=== PATIENT | female | born 1985 | race Caucasian/White ===

== ENCOUNTER → 2024-05-20 07:13 | Outpatient (REF) | payer BC, SELFPAY ==
[2024-05-20 08:30] LABS: Urine Albumin Negative (Neg - Trace); Urine Bilirubin Negative (Negative); Urine Character Clear (Clear); Urine Color Yellow; Urine Glucose Negative (Negative); Urine Ketone Negative (Negative); Urine Leukocyte Negative (Negative); Urine Nitrite Negative (Negative); Urine Occult Blood Negative (Negative); Urine Specific Gravity 1.015 (<1.030); Urine Urobilinogen Negative (Neg - 1+)
[2024-05-20 08:53] LABS: ALT (SGPT) 19 U/L (0-35); AST (SGOT) 24 U/L (14-36); Albumin 4.6 g/dl (3.5-5.0); Alkaline Phosphatase 49 U/L (38-126); Blood Urea Nitrogen 11 mg/dl (7-17); Calcium 9.2 mg/dl (8.4-10.2); Carbon Dioxide 24 mmol/L (22-30); Chloride 104 mmol/L (98-107); Glucose 83 mg/dl (70-99); Potassium 4.3 mmol/L (3.5-5.1); Sodium 137 mmol/L (135-145); Total Bilirubin 0.5 mg/dl (0.2-1.3); Total Protein 7.2 g/dl (6.3-8.2); eGFR > 60.00
[2024-05-20 09:15] LABS: Urine Protein < 5.0 mg/dl
[2024-05-20 09:18] LABS: TSH Reflex To Free T4 3.38 uIU/ml (0.47-4.68)
[2024-05-20 09:59] LABS: Erythrocyte Sed Rate 9 mm/hour (0-20)
[2024-05-22 11:14] LABS: SSA 52 (Ro)(ENA) Ab, IgG 2 AU/mL (0-40); SSA 60 (Ro)(ENA) Ab, IgG 98 AU/mL (0-40); SSB (La)(ENA) Ab, IgG 11 AU/mL (0-40)
[2024-05-23 09:56] LABS: Albumin 4.58 g/dL (3.75-5.01); Alpha 1 Globulin 0.23 g/dL (0.19-0.46); Alpha 2 Globulin 0.55 g/dL (0.48-1.05); SPEP IFE Reflex Not Done; Total Protein-Electrophoresis 7.1 g/dL (6.3-8.2)
== END ==
LOC: REG 07:13
PROVIDERS: ATTENDING PHYSICIAN Internal Medicine Rheumatology; FAMILY PHYSICIAN Internal Medicine
DX: M35.1 Other overlap syndromes (principal)
CPT/HCPCS: 36415; 80053; 81003; 82565; 82570; 84155; 84156; 84165; 84443; 85652; 86160; 86235; 86430

== ENCOUNTER → 2024-09-12 13:42 | Outpatient (REF) | payer BC, SELFPAY ==
[2024-09-12 17:14] LABS: Beta HCG Quantitative 876.41 mIU/ml
== END ==
LOC: HWLAB 13:42
PROVIDERS: ATTENDING PHYSICIAN Specialist; FAMILY PHYSICIAN Internal Medicine
DX: O03.9 Complete or unspecified spontaneous abortion without complication (principal)
CPT/HCPCS: 36415; 84702

== ENCOUNTER → 2024-09-27 07:15 | Outpatient (REF) | payer BC, SELFPAY ==
[2024-09-27 10:34] LABS: Beta HCG Quantitative 41.99 mIU/ml
== END ==
LOC: HWLAB 07:15
PROVIDERS: ATTENDING PHYSICIAN Specialist; FAMILY PHYSICIAN Internal Medicine
DX: O03.9 Complete or unspecified spontaneous abortion without complication (principal)
CPT/HCPCS: 36415; 84702

== ENCOUNTER → 2024-10-14 08:00 | Outpatient (REF) | payer BC, SELFPAY ==
[2024-10-14 10:27] LABS: Beta HCG Quantitative 5.14 mIU/ml
== END ==
LOC: HWLAB 08:00
PROVIDERS: ATTENDING PHYSICIAN Specialist; FAMILY PHYSICIAN Internal Medicine
DX: O03.9 Complete or unspecified spontaneous abortion without complication (principal)
CPT/HCPCS: 36415; 84702

== ENCOUNTER → 2024-12-05 08:36 | Outpatient (REF) | payer BC, SELFPAY ==
[2024-12-05 09:42] LABS: Hematocrit 43.0 % (37.0-47.0); Hemoglobin 14.3 g/dL (12.0-16.0); Mean Corp Hgb Conc. 33.3 g/dL (33.0-37.0); Mean Corpuscular Volume 93.5 fL (81.0-99.0); Nucleated Red Blood Cells % 0 %; Platelet Count 248 10^3/uL (130-400); Red Cell Dist. Width 11.9 % (11.5-14.5)
[2024-12-05 09:42] LABS: Urine Character Clear (Clear)
[2024-12-05 10:09] LABS: Urine Squamous Cell >30 /LPF (Few)
[2024-12-05 10:34] LABS: ALT (SGPT) 17 U/L (0-35); AST (SGOT) 21 U/L (14-36); Albumin 4.9 g/dl (3.5-5.0); Alkaline Phosphatase 30 U/L (38-126); Blood Urea Nitrogen 9 mg/dl (7-17); Calcium 9.6 mg/dl (8.4-10.2); Carbon Dioxide 25 mmol/L (22-30); Chloride 105 mmol/L (98-107); Glucose 89 mg/dl (70-99); Potassium 4.3 mmol/L (3.5-5.1); Sodium 140 mmol/L (135-145); Total Protein 7.5 g/dl (6.3-8.2); eGFR > 60.00
[2024-12-05 10:52] LABS: TSH 3.58 uIU/ml (0.47-4.68)
[2024-12-05 11:58] LABS: Rheumatoid Agglutinin Less Than 10 IU (<10 IU)
[2024-12-08 02:38] LABS: Albumin 4.73 g/dL (3.75-5.01); Free Kappa Light Chains,Quant 13.67 mg/L (3.30-19.40); Free Lambda Light Chains,Quant 12.32 mg/L (5.71-26.30); Immunofixation Electrophoresis IFE Done; Kappa/Lambda Fr Light Ratio 1.11 (0.26-1.65); Total Protein-Electrophoresis 7.4 g/dL (6.3-8.2)
== END ==
LOC: REG 08:36
PROVIDERS: ATTENDING PHYSICIAN Internal Medicine Rheumatology; FAMILY PHYSICIAN Internal Medicine
DX: M35.01 Sjogren syndrome with keratoconjunctivitis (principal)
CPT/HCPCS: 36415; 80053; 81003; 81015; 82570; 82784; 83521; 84155; 84156; 84165; 84443; 85025; 85652; 86160; 86334; 86430

== ENCOUNTER → 2024-12-22 13:26 | Outpatient (REF) | payer BC, SELFPAY ==
[2024-12-22 18:09] LABS: Urine Character Clear (Clear)
== END ==
LOC: HWLAB 13:26
PROVIDERS: ATTENDING PHYSICIAN Internal Medicine Rheumatology; FAMILY PHYSICIAN Internal Medicine
DX: R80.8 Other proteinuria (principal); M35.01 Sjogren syndrome with keratoconjunctivitis
CPT/HCPCS: 36415; 81003

== ENCOUNTER → 2024-12-26 12:05 | Outpatient (REF) | payer BC, SELFPAY ==
[2024-12-26 16:40] LABS: 24 Hour Urine Total Volume 2900 ml
== END ==
LOC: HWLAB 12:05
PROVIDERS: ATTENDING PHYSICIAN Internal Medicine Rheumatology; FAMILY PHYSICIAN Internal Medicine
DX: R80.8 Other proteinuria (principal)
CPT/HCPCS: 81050; 82570; 84156

== ENCOUNTER → 2025-04-24 13:39 | Outpatient (REF) | payer BC, SELFPAY ==
[2025-04-24 15:51] LABS: Hematocrit 37.5 % (37.0-47.0); Hemoglobin 12.9 g/dL (12.0-16.0); Mean Corp Hgb Conc. 34.4 g/dL (33.0-37.0); Mean Corpuscular Volume 90.8 fL (81.0-99.0); Nucleated Red Blood Cells % 0 %; Platelet Count 220 10^3/uL (130-400); Red Cell Dist. Width 11.6 % (11.5-14.5)
[2025-04-24 16:03] LABS: ALT (SGPT) 16 U/L (0-35); AST (SGOT) 22 U/L (14-36); Albumin 4.5 g/dl (3.5-5.0); Alkaline Phosphatase 31 U/L (38-126); Blood Urea Nitrogen 12 mg/dl (7-17); Calcium 9.3 mg/dl (8.4-10.2); Carbon Dioxide 24 mmol/L (22-30); Chloride 104 mmol/L (98-107); Glucose 93 mg/dl (70-99); Potassium 4.1 mmol/L (3.5-5.1); Sodium 136 mmol/L (135-145); Total Protein 7.0 g/dl (6.3-8.2); eGFR > 60.00
[2025-04-24 16:21] LABS: Vitamin D, 25-OH*** 46.5 ng/mL (30-80)
[2025-04-24 16:36] LABS: Ferritin 30.8 ng/ml (6.24-137)
[2025-04-24 16:51] LABS: Vitamin B12 707 pg/ml (239-931)
== END ==
LOC: HWLAB 13:39
PROVIDERS: ATTENDING PHYSICIAN Internal Medicine Rheumatology; FAMILY PHYSICIAN Internal Medicine
DX: M35.01 Sjogren syndrome with keratoconjunctivitis (principal)
CPT/HCPCS: 36415; 80053; 82306; 82607; 82728; 84443; 85025